=== PATIENT | male | born 1970 | race Caucasian/White ===

== ENCOUNTER 2017-04-24 12:04 | Emergency (ER) | payer SELFPAY ==
[2017-04-24 12:24] VITALS: BP 137/85; PULSE 88; TEMP 99; BMI 33.0
--- NOTE | 2017-04-24 13:45 | PDOC ---
History of Present Illness - General Chief Complaint: Abscess Boil Stated Complaint: RASH NEW GROIN AREA Time Seen by Provider: 04/24/17 13:18 Past History - Past Medical History Allergies/Adverse Reactions: Allergies Allergy/AdvReac Type Severity Reaction Status Date / Time No Known Allergies Allergy Verified 04/24/17 12:21 Home Medications: Ambulatory Orders Unobtainable [Unobtainable] 04/24/17 COPD: No HTN: Yes - Suicide/Smoking/Psychosocial Hx Smoking History: Never smoked Have you smoked in the past 12 months: No Information on smoking cessation initiated: No Hx Alcohol Use: No Drug/Substance Use Hx: No Substance Use Type: None *Physical Exam - Vital Signs Last Vital Signs Temp Pulse Resp BP Pulse Ox 99.0 F 88 18 137/85 100 04/24/17 12:22 04/24/17 12:22 04/24/17 12:22 04/24/17 12:22 04/24/17 12:22 *DC/Admit/Observation/Transfer - Referrals Referrals: Kenzie Mahajan [Non Staff, Medical] - - Patient Instructions - Post Discharge Activity
--- NOTE | 2017-04-24 14:02 | PDOC ---
History of Present Illness - General Chief Complaint: Abscess Boil Stated Complaint: RASH NEW GROIN AREA Time Seen by Provider: 04/24/17 13:18 History Source: Patient Exam Limitations: No Limitations - History of Present Illness Initial Comments: 04/24/17 13:58 46 yr male history of HTN presents to ER with pain, swelling to right groin for 3 days states spreading and getting worse. Pt denies fever or chills, states it "started as pimple" now has spread and had some drainage yesterday. 04/24/17 13:59 Timing/Duration: reports: getting worse Severity: Yes: moderate Past History - Past Medical History Allergies/Adverse Reactions: Allergies Allergy/AdvReac Type Severity Reaction Status Date / Time No Known Allergies Allergy Verified 04/24/17 12:21 Home Medications: Ambulatory Orders Cephalexin Monohydrate [Keflex -] 500 mg PO Q6H #20 capsule 04/24/17 Sulfamethoxazole/Trimethoprim [Bactrim Ds -] 1 tab PO BID #10 tablet 04/24/17 COPD: No HTN: Yes - Suicide/Smoking/Psychosocial Hx Smoking History: Never smoked Have you smoked in the past 12 months: No Information on smoking cessation initiated: No Hx Alcohol Use: No Drug/Substance Use Hx: No Substance Use Type: None Review of Systems - Review of Systems Able to Perform ROS?: Yes Is the patient limited Kinyarwanda proficient: No Constitutional: No: Symptoms Reported HEENTM: No: Symptoms Reported Respiratory: No: Symptoms reported Cardiac (ROS): No: Symptoms Reported ABD/GI: No: Symptoms Reported : No: Symptoms Reported Musculoskeletal: No: Symptoms Reported Integumentary: Yes: Symptoms Reported *Physical Exam - Vital Signs Last Vital Signs Temp Pulse Resp BP Pulse Ox 99.0 F 88 18 137/85 100 04/24/17 12:22 04/24/17 12:22 04/24/17 12:22 04/24/17 12:22 04/24/17 12:22 - Physical Exam General Appearance: Yes: Nourished, Appropriately Dressed HEENT: positive: EOMI, ÁLVARO Integumentary: positive: Other (right infuinal area with indurated abscess with surrounding cellulitus extednign to the lateral thigh and medial thigh, warm to touch) Neurologic: positive: floorwalker II-XII NML intact, Fully Oriented, Alert, Normal Mood/ Affect, Normal Response, Motor Strength 08/15 ED Treatment Course - LABORATORY CBC & Chemistry Diagram: 04/24/17 13:50 04/24/17 13:50 Medical Decision Making - Medical Decision Making 04/24/17 14:01 cc: swelling, pain to groin area no fever will transfer to main ER for probable admission and surgical consult labs drawn, pt aware of plan endorsed to ER attending Dr. Genao who will assume care. charge nurse Ellie fernandez, pt placed in vertical room 2 *DC/Admit/Observation/Transfer Diagnosis at time of Disposition: Abscess, Cellulitis - Discharge Dispostion Disposition: HOME Condition at time of disposition: Good - Prescriptions Prescriptions: Cephalexin Monohydrate [Keflex -] 500 mg PO Q6H #20 capsule Sulfamethoxazole/Trimethoprim [Bactrim Ds -] 1 tab PO BID #10 tablet - Referrals Referrals: Kenzie Mahajan [Non Staff, Medical] - - Patient Instructions Printed Discharge Instructions: DI for Incision and Drainage of a Skin Abscess Additional Instructions: Please return to the ER if you experience concerning or worsening symptoms including worsening fevers, symptoms or redness to the area. Your lab results were normal here in the ER. We have sent prescriptions for antibiotics to your pharmacy which you should take as directed for the next 5 days. It is important that you call to schedule a follow up with your primary care provider within 2-3 days to discuss your ER visit and be reevaluated. - Post Discharge Activity
[2017-04-24 14:22] LABS: URINE APPEARANCE CLEAR; URINE BILIRUBIN NEGATIVE (NEGATIVE); URINE BLOOD NEGATIVE (NEGATIVE); URINE COLOR COLORLESS; URINE GLUCOSE (UA) NEGATIVE (NEGATIVE); URINE KETONE NEGATIVE (NEGATIVE); URINE LEUK ESTERASE NEGATIVE (NEGATIVE); URINE NITRITE NEGATIVE (NEGATIVE); URINE PROTEIN NEGATIVE (NEGATIVE); URINE UROBILINOGEN NEGATIVE mg/dL (0.2-1.0)
[2017-04-24 14:26] LABS: BASO % 0.5 % (0-2.0); EOS % 1.1 % (0-4.5); HEMATOCRIT 42.1 % (35.4-49); HEMOGLOBIN 13.6 GM/dL (11.7-16.9); LYMPH % 12.6 % (8-40); MCH 28.8 pg (25.7-33.7); MCHC 32.2 g/dl (32.0-35.9); MEAN CELL VOLUME 89.3 fl (80-96); MEAN PLT VOLUME 7.7 fl (7.5-11.1); MONO % 8.7 % (3.8-10.2); NEUT % 77.1 % (42.8-82.8); PLATELET COUNT 260 K/MM3 (134-434); RBC 4.72 M/mm3 (4.00-5.60); RDW 13.4 % (11.9-15.9); WHITE BLOOD COUNT 13.3 K/mm3 (4.0-10.0)
[2017-04-24 14:44] LABS: ALBUMIN 4.2 g/dl (3.4-5.0); ALK PHOS 126 U/L (45-117); ANION GAP 10 (8-16); BLOOD UREA NITROGEN 14 mg/dL (7-18); CALCIUM 8.9 mg/dL (8.5-10.1); CHLORIDE 99 mmol/L (98-107); CO2 27 mmol/L (21-32); CREATININE 0.7 mg/dL (0.7-1.3); GLUCOSE,RANDOM 88 mg/dL (74-106); POTASSIUM 3.9 mmol/L (3.5-5.1); SGOT/AST 23 U/L (15-37); SGPT/ALT 51 U/L (12-78); SODIUM 136 mmol/L (136-145)
[2017-04-24 14:52] LABS: INR 1.04 (0.82-1.09); PROTHROMBIN TIME (PATIENT) 11.8 SEC (9.98-11.88)
[2017-04-24 14:54] LABS: ACTIVATED PTT 30.4 SECONDS (26.9-34.4)
--- NOTE | 2017-04-24 14:57 | PDOC ---
History of Present Illness - General Chief Complaint: Abscess Boil Stated Complaint: RASH NEW GROIN AREA Time Seen by Provider: 04/24/17 13:18 - History of Present Illness Initial Comments: 04/24/17 16:20 The patient is a 46 year old male with no significant PMH who presents for evaluation a right inguinal abscess. The patient reports redness and warmth to his right inguinal region beginning 2-3 days ago. He noted that the location began draining some fluid today prompting his presentation to the ED for evaluation. 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 He denies any fevers, chills, SOB, chest pain, nausea, vomiting, abdominal pain, or changes with urination or bowel movements. Past History - Past Medical History Allergies/Adverse Reactions: Allergies Allergy/AdvReac Type Severity Reaction Status Date / Time No Known Allergies Allergy Verified 04/24/17 12:21 Home Medications: Ambulatory Orders Cephalexin Monohydrate [Keflex -] 500 mg PO Q6H #20 capsule 04/24/17 Sulfamethoxazole/Trimethoprim [Bactrim Ds -] 1 tab PO BID #10 tablet 04/24/17 COPD: No HTN: Yes - Suicide/Smoking/Psychosocial Hx Smoking History: Never smoked Have you smoked in the past 12 months: No Information on smoking cessation initiated: No Hx Alcohol Use: No Drug/Substance Use Hx: No Substance Use Type: None Review of Systems - Review of Systems Comments:: 04/24/17 16:23 Constitutional: No fevers, chills, fatigue, malaise HEENT: No Rhinorrhea, nasal congestion, visual changes Cardiovascular: No chest pain, syncope, palpitations, lightheadedness Respiratory: No Cough, SOB, Hemoptysis, Gastrointestinal: No Abdominal pain, Nausea, Vomiting, Constipation, Diarrhea, Melena Genitourinary: No Dysuria, Frequency, Urgency, Hesitancy, Hematuria, Flank pain Musculoskeletal: No Myalgia, arthralgia Skin: Redness to the right groin. No bruising, pallor Neurologic: No Headache, Dizziness, Numbness, Weakness, or Tingling Psychiatric: No Hallucinations. No SI or HI *Physical Exam - Vital Signs Last Vital Signs Temp Pulse Resp BP Pulse Ox 99.0 F 88 18 137/85 100 04/24/17 12:22 04/24/17 12:22 04/24/17 12:22 04/24/17 12:22 04/24/17 12:22 - Physical Exam Comments: 04/24/17 16:24 General Appearance: Nourished. No Apparent Distress HEENT: EOMI, ÁLVARO. Neck: No Cervical Lymphadenopathy Respiratory/Chest: Lungs Clear, Normal Breath Sounds. No Crackles, Rales, Rhonchi, Wheezing Cardiovascular: Regular Rhythm, Regular Rate. No Murmur, Gallops, Rubs Gastrointestinal/Abdominal: Normal Bowel Sounds, Soft. No Guarding, Rebound, Tenderness Musculoskeletal: No CVA Tenderness Extremity: 2 cm indurated fluculent mass in the right inguinal region with surrounding erythema and warmth. Normal Capillary Refill Integumentary: Normal Color, Dry, Warm Neurologic: Fully Oriented, Alert, Normal Mood/Affect, Normal Response, Procedures - Incision and Drainage I&D Site: Right: Groin (Inguinal) Anesthesia: 1% Lidocaine Volume(ml): 3 Blade Size: 11 Attempts: 1 Plain Packing: Yes Complications: none Dressing: Yes ED Treatment Course - LABORATORY CBC & Chemistry Diagram: 04/24/17 13:50 04/24/17 13:50 - ADDITIONAL ORDERS Additional order review: Laboratory Results 04/24/17 04/24/17 04/24/17 13:50 13:50 13:50 Sodium 136 Potassium 3.9 Chloride 99 Carbon Dioxide 27 Anion Gap 10 BUN 14 Creatinine 0.7 Creat Clearance w eGFR > 60 Random Glucose 88 Lactic Acid 0.9 Calcium 8.9 Total Bilirubin 1.0 AST 23 ALT 51 Alkaline Phosphatase 126 H Total Protein 8.0 Albumin 4.2 Urine Color Colorless Urine Appearance Clear Urine pH 7.0 Ur Specific Cordell 1.003 Urine Protein Negative Urine Glucose (UA) Negative Urine Ketones Negative Urine Blood Negative Urine Nitrite Negative Urine Bilirubin Negative Urine Urobilinogen Negative Ur Leukocyte Esterase Negative 04/24/17 13:50 RBC 4.72 MCV 89.3 MCHC 32.2 RDW 13.4 MPV 7.7 Neutrophils % 77.1 Lymphocytes % 12.6 Monocytes % 8.7 Eosinophils % 1.1 Basophils % 0.5 Medical Decision Making - Medical Decision Making 04/24/17 16:27 The patient is a 46 year old male with no significant PMH who presents for evaluation a right inguinal abscess. Differential includes but is not limited to: Cellulitis, Abscess, infectious, metabolic derangement. Given the physical exam of the patient, it is likely the patient has an abscess with a surround cellulitis that requires I&D. We will obtain a cbc, cmp, cultures and continue to monitor and reassess. 04/24/17 16:28 Patient's lab work is unremarkable besides an elevated wbc to 13.3. We performed an I&D with drainage of purulent fluid. The wound was dressed. We are comfortable discharging the patient home at this time with primary care provider follow up in 3 days. We discussed the results and return precautions with the patient who voiced understanding and is agreeable with the plan. *DC/Admit/Observation/Transfer Diagnosis at time of Disposition: Abscess Cellulitis Qualifiers: Site of cellulitis: unspecified site Qualified Code(s): L03.90 - Cellulitis, unspecified - Discharge Dispostion Disposition: HOME Condition at time of disposition: Good Admit: No - Prescriptions Prescriptions: Cephalexin Monohydrate [Keflex -] 500 mg PO Q6H #20 capsule Sulfamethoxazole/Trimethoprim [Bactrim Ds -] 1 tab PO BID #10 tablet - Referrals Referrals: Kenzie Mahajan [Non Staff, Medical] - - Patient Instructions Printed Discharge Instructions: DI for Incision and Drainage of a Skin Abscess Additional Instructions: Please return to the ER if you experience concerning or worsening symptoms including worsening fevers, symptoms or redness to the area. Your lab results were normal here in the ER. We have sent prescriptions for antibiotics to your pharmacy which you should take as directed for the next 5 days. It is important that you call to schedule a follow up with your primary care provider within 2-3 days to discuss your ER visit and be reevaluated. - Post Discharge Activity
--- NOTE | 2017-04-24 15:02 | PDOC ---
Attending Attestation - Resident Resident Name: Macario Vogt - ED Attending Attestation I have performed the following: I have examined & evaluated the patient, The case was reviewed & discussed with the resident, I agree w/resident's findings & plan, Exceptions are as noted - HPI HPI: 04/24/17 15:00 46y M hx htn presents with complaint of redness/swelling in his R inguinal region x 2-3 days. Pt denies any fever/chills/. Pt endorse squeezing it and thinking it was a pimple with some whitish discharge. 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 He denies any significant pain as long as we are not pushing on it. on exam the pt has some redeness/swelling/induration in the R inguinal region. It is hard, but not fluctuant. however bdisded US reveals a small fluid collection. will cover for MRSA due to appearance of the celluitis with keflex/bactrim labs reviewed noted for mild leukocytosis pt a good candidate for outptaient treatment. wound check in 3 days for resolution/improvement return precautions were discussed - Physicial Exam PE: 04/26/17 08:26 see above - Medical Decision Making abcess drained by inocencio vogt will dc pt with PO abx return precautions were discussed
== END 2017-04-24 16:27 | disposition home or self-care (01) ==
LOC: JER 12:04 → JERFT 12:04 → JER 16:27
PROC: 0J9C0ZZ Drainage of Pelvic Region Subcutaneous Tissue and Fascia, Open Approach (ICD-10-PCS; principal; 2017-04-24)
DX: L02.214 Cutaneous abscess of groin (principal)
CPT/HCPCS: 36415; 80053; 81003; 83605; 85025; 85610; 85730; 87040; 87086; 99282-25